=== PATIENT | male | born 1955 | race Caucasian/White ===

== ENCOUNTER → 2017-08-04 | Day surgery (SDC) | payer BC ==
[~2017-08-04] MED LIST: FENTANYL CITRATE/PF 100MCG/2 ML INJ ONE; LIDOCAINE HCL 2% LOCAL INJ 5 ML SDV VIAL INJ ONE; MIDAZOLAM HCL 2 MG/2 ML VIAL ONE; MULTI-VITAMIN1 EACH PO; PROPOFOL IV EMULSION 10 MG/ML 20 ML VIAL ONE
--- OUTSIDE RECORDS SUMMARY | 2017-08-04 08:29 | XMS REPORT | Clinical Summary ---
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 Disp. Refills Start End Date Status Date ciprofloxacin-dexamethaso Administer 4 drops to the 7.5 mL 0 02/29/20 03/07/20 ne (CIPRODEX) 0.3-0.1 % right ear 2 (two) times a 17 17 otic day for 7 days. suspensionIndications: Ear pain, right Active Problems Problem Noted Date Ear pain 02/28/2017 Acute diffuse otitis externa of right ear 02/28/2017 Encounters Date Type Specialty Care Team Description 03/21/2017 Office Visit Otolaryngology Adrian Agee MD Acute diffuse otitis externa of right ear (Primary Dx); Right ear pain 03/07/2017 Office Visit Otolaryngology Adrian Agee MD Acute diffuse otitis externa of right ear (Primary Dx); Right ear pain 02/28/2017 Office Visit Otolaryngology Adrian Agee MD Ear pain, right (Primary Dx); Acute diffuse otitis externa of right ear after 08/03/2016 Social History Tobacco Use Types Packs/Day Years Used Date Never Smoker Alcohol Use Drinks/Week oz/Week Comments Yes Sex Assigned at Date Recorded Not on file Last Filed Vital Signs Vital Sign Reading Time Taken Blood Pressure 123/83 03/21/2017 4:00 PM CDT Pulse 94 03/21/2017 4:00 PM CDT Temperature - - Respiratory Rate - - Oxygen Saturation - - Inhaled Oxygen - - Concentration Weight 184 kg (406 lb) 03/21/2017 4:00 PM CDT Height 182.9 cm (6') 03/21/2017 4:00 PM CDT Body Mass Index 55.06 03/21/2017 4:00 PM CDT Plan of Treatment Health Maintenance Due Date Last Done Comments COLONOSCOPY 2006 ZOSTER VACCINE 2016 INFLUENZA VACCINE 01/04/2017 Results Not on fileafter 08/03/2016 Insurance Payer Benefit Subscriber ID Type Phone Address Plan / Group BCBS BCBS xxxxxxxxx PPO CHOICE PPO/[employer] PPO
--- NOTE | 2017-08-04 10:52 | Operative Report ---
DATE OF PROCEDURE: August 04, 2017 PROCEDURE PERFORMED: Colonoscopy. PREOPERATIVE DIAGNOSIS: History of colon polyps. POSTOPERATIVE DIAGNOSES: History of colon polyps, none found, internal hemorrhoids present. PREOPERATIVE MEDICATIONS: Consisted of MAC anesthesia. TECHNIQUE: Using the [employer] video colonoscope, this was inserted in the patient's rectum and advanced without difficulty to the level of the cecum. The colon was studied from the cecum back down to the rectum. No polypoid lesions, tumor, masses, or inflammatory changes were encountered. In the anal canal, there was evidence of internal hemorrhoids. The colonoscope was withdrawn from the patient's rectum, and the procedure was ended. In conclusion, we have findings of internal hemorrhoids; personal history of colon polyps, none found. Job#: [id number] SIM[place]
== END | disposition home or self-care (01) ==
LOC: OR 08:27
PROVIDERS: ATTEND Internal Medicine Gastroenterology
DX: Z09 Encounter for follow-up examination after completed treatment for conditions other than malignant neoplasm (principal); Z86.010 Personal history of colon polyps; K57.30 Diverticulosis of large intestine without perforation or abscess without bleeding; K64.8 Other hemorrhoids; E66.01 Morbid (severe) obesity due to excess calories; Z01.810 Encounter for preprocedural cardiovascular examination; Z68.43 Body mass index [BMI] 50.0-59.9, adult
CPT/HCPCS: 45378; 93005; J2001; J2250